=== PATIENT | male | born 1975 | race Caucasian/White ===

== ENCOUNTER → 2018-02-02 | Outpatient (CLI) | payer OTHER ==
[~2018-02-02] MED LIST: OMEP10CA4 PO
== END | disposition home or self-care (01) ==
LOC: RAD 14:50
PROVIDERS: ATTEND Family Medicine
DX: R10.11 Right upper quadrant pain (principal); R11.2 Nausea with vomiting, unspecified; R19.7 Diarrhea, unspecified
CPT/HCPCS: 76700

== ENCOUNTER 2018-02-22 23:52 | Emergency (ER) | payer OTHER ==
[~2018-02-22] VITALS: Ht 177.8 cm; Wt 111.0 kg
[2018-02-23] MEDS ORDERED: RANI-276 PO (00:24)
[2018-02-23 00:54] LABS: BASOPHILS # (AUTO) 0.04 x10^3/uL (0-0.1); BASOPHILS % (AUTO) 1 % (0-1); EOSINOPHILS # (AUTO) 0.12 x10^3/uL (0-0.4); EOSINOPHILS % (AUTO) 2 % (1-7); LYMPHOCYTES # (AUTO) 1.98 x10^3/uL (1-3.4); LYMPHOCYTES % (AUTO) 35 % (22-44); MD NO; MEAN CORPUSCULAR HEMOGLOBIN 33.2 pg (27.5-34.5); MEAN CORPUSCULAR HGB CONC 34.9 g/dL (33.2-36.2); MEAN CORPUSCULAR VOLUME 95.1 fL (81-97); MEAN PLATELET VOLUME 8.7 fL (7.4-10.4); MONOCYTES # (AUTO) 0.52 x10^3/uL (0.2-0.8); MONOCYTES % (AUTO) 9 % (2-9); NEUTROPHILS # (AUTO) 3.08 x10^3/uL (1.8-6.8); NEUTROPHILS % (AUTO) 54 % (42-75); PLATELET COUNT 279 x10^3/uL (130-400); RED BLOOD COUNT 4.94 x10^6/uL (4.38-5.82); RED CELL DISTRIBUTION WIDTH 12.9 % (9.4-14.8)
[2018-02-23 01:03] LABS: ALANINE AMINOTRANSFERASE 29 U/L (12-78); ALBUMIN 3.6 g/dL (3.4-5.0); ANION GAP 7 mmol/L (5-15); CALCIUM 8.4 mg/dL (8.5-10.1); CHLORIDE 107 mmol/L (98-107); CREATININE 1.13 mg/dL (0.7-1.3)
[2018-02-23 01:05] LABS: ALKALINE PHOSPHATASE 96 U/L (45-117); BILIRUBIN,TOTAL 0.5 mg/dL (0.2-1.0); TOTAL PROTEIN 6.8 g/dL (6.4-8.2)
[2018-02-23] MEDS ORDERED: OMNIPAQUE 350 MG/ML, 100ML BOTTLE ONE (01:14)
[2018-02-23 02:14] LABS: MICROSCOPIC NOT IND
[2018-02-23 02:16] LABS: CULTURE INDICATED? NO
[2018-02-23 03:02] VITALS: BP 46/78
== END 2018-02-23 03:04 | disposition home or self-care (01) ==
LOC: ED 23:59
DX: K52.9 Noninfective gastroenteritis and colitis, unspecified (principal)
CPT/HCPCS: 36415; 74177; 80053; 81003; 83690; 85025; 99285; Q9967

== ENCOUNTER 2018-04-14 10:59 | Emergency (ER) | payer OTHER ==
[~2018-04-14] VITALS: Ht 180.3 cm; Wt 107.0 kg
--- NOTE | 2018-04-14 11:15 | NUR ---
PT TO ROOM FROM LOBBY
--- NOTE | 2018-04-14 11:22 | NUR ---
42 Y/O MALE PRESENTS TO ED WITH C/O CP, BACK PAIN AND LEFT ARM DISCOMFORT. "I HAVE SOME CP, BACK PAIN AND LEFT ARM PAIN. I'VE HAD CP OVER THE YEARS THAT WAS ANXIETY. THIS TIME IT HAS BEEN GOING ON FOR 3 DAYS WITH MY ARM NOT FEELING RIGHT. SO I WANTED TO COME GET CHECKED" NO C/O N/V/D, TRAUMA, SYNCOPE, SOB. 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
--- NOTE | 2018-04-14 11:41 | NUR ---
ASSUMED CARE AT THIS TIME. VSS.
--- NOTE | 2018-04-14 11:46 | NUR ---
EKG BEING COMPLETED AT THIS TIME.
[2018-04-14] MEDS ORDERED: NITROGLYCERIN SINGLE TAB 0.4 MG SL PRN (12:00)
[2018-04-14] MEDS ORDERED: ASPIRIN 81 MG TABLET CHEW PO ONE (12:00)
[2018-04-14 12:09] LABS: BASOPHILS # (AUTO) 0.03 x10^3/uL (0-0.1); BASOPHILS % (AUTO) 1 % (0-1); EOSINOPHILS # (AUTO) 0.08 x10^3/uL (0-0.4); EOSINOPHILS % (AUTO) 2 % (1-7); LYMPHOCYTES # (AUTO) 1.13 x10^3/uL (1-3.4); LYMPHOCYTES % (AUTO) 24 % (22-44); MD NO; MEAN CORPUSCULAR HEMOGLOBIN 33.1 pg (27.5-34.5); MEAN CORPUSCULAR HGB CONC 34.5 g/dL (33.2-36.2); MEAN CORPUSCULAR VOLUME 95.9 fL (81-97); MEAN PLATELET VOLUME 8.4 fL (7.4-10.4); MONOCYTES # (AUTO) 0.42 x10^3/uL (0.2-0.8); MONOCYTES % (AUTO) 9 % (2-9); NEUTROPHILS # (AUTO) 3.09 x10^3/uL (1.8-6.8); NEUTROPHILS % (AUTO) 65 % (42-75); PLATELET COUNT 274 x10^3/uL (130-400); RED BLOOD COUNT 5.09 x10^6/uL (4.38-5.82); RED CELL DISTRIBUTION WIDTH 13.4 % (9.4-14.8)
[2018-04-14] MEDS ORDERED: ASPIRIN 81 MG TABLET CHEW ONE (12:38)
--- NOTE | 2018-04-14 12:45 | NUR ---
Pt taken to [facility]. Hossein.
[2018-04-14 13:03] LABS: ALBUMIN 3.9 g/dL (3.4-5.0); ANION GAP 4 mmol/L (5-15); CALCIUM 8.6 mg/dL (8.5-10.1); CHLORIDE 108 mmol/L (98-107); CREATININE 1.11 mg/dL (0.7-1.3)
[2018-04-14 13:07] LABS: TROPONIN I < 0.015 ng/mL (0.000-0.045)
--- NOTE | 2018-04-14 13:33 | NUR ---
All results back at this time.
[2018-04-14 13:34] VITALS: BP 135/102
--- NOTE | 2018-04-14 13:49 | NUR ---
Patient/Caregiver given discharge instructions and they have confirmed that they understand the instructions. Patient ambulatory with steady gait.
--- NOTE | 2018-04-14 14:10 | NUR ---
AWAITING MD SCANLON PAPERS
== END 2018-04-14 14:35 | disposition home or self-care (01) ==
LOC: ED 11:19
DX: R07.89 Other chest pain (principal); K21.9 Gastro-esophageal reflux disease without esophagitis
CPT/HCPCS: 36415; 71045; 80048; 82040; 84484; 85025; 85379; 93005; 99284

== ENCOUNTER → 2018-04-14 | Outpatient (CLI) | payer OTHER ==
[~2018-04-14] MED LIST changes: +RANI-448 PO
== END | disposition home or self-care (01) ==
LOC: RAD 09:58
PROVIDERS: ATTEND Orthopaedic Surgery
DX: Z02.9 Encounter for administrative examinations, unspecified (principal)

== ENCOUNTER 2019-07-01 17:34 | Emergency (ER) | payer OTHER ==
[~2019-07-01] VITALS: Ht 180.3 cm; Wt 99.2 kg
[~2019-07-01 17:34] MED LIST changes: -OMEP10CA4 PO; +OMEP10CA5 PO; -RANI-448 PO; +RANI-460 PO
[2019-07-01 20:28] LABS: MEAN CORPUSCULAR HEMOGLOBIN 33.8 pg (27.5-34.5); MEAN CORPUSCULAR VOLUME 99.3 fL (81-97); MEAN PLATELET VOLUME 7.8 fL (7.4-10.4); PLATELET COUNT 323 x10^3/uL (130-400); RED BLOOD COUNT 4.83 x10^6/uL (4.38-5.82); RED CELL DISTRIBUTION WIDTH 12.7 % (9.4-14.8)
[2019-07-01 20:32] LABS: ALANINE AMINOTRANSFERASE 26 U/L (12-78); ALBUMIN 3.8 g/dL (3.4-5.0); ANION GAP 7 mmol/L (5-15); CALCIUM 8.6 mg/dL (8.5-10.1); CHLORIDE 103 mmol/L (98-107); CREATININE 0.93 mg/dL (0.7-1.3)
[2019-07-01 20:35] LABS: ALKALINE PHOSPHATASE 69 U/L (45-117); BILIRUBIN,TOTAL 0.8 mg/dL (0.2-1.0); TOTAL PROTEIN 7.6 g/dL (6.4-8.2)
--- NOTE | 2019-07-01 20:52 | NUR ---
PT. TO ROOM FROM LOBBY.
[2019-07-01 20:55] LABS: BASOPHILS % (AUTO) 0 % (0-1); EOSINOPHILS # (AUTO) 0.01 x10^3/uL (0-0.4); EOSINOPHILS % (AUTO) 0 % (1-7); LYMPHOCYTES # (AUTO) 0.19 x10^3/uL (1-3.4); LYMPHOCYTES % (AUTO) 2 % (22-44); MD SCAN; MONOCYTES % (AUTO) 2 % (2-9); NEUTROPHILS # (AUTO) 10.14 x10^3/uL (1.8-6.8); NEUTROPHILS % (AUTO) 96 % (42-75)
--- NOTE | 2019-07-01 21:11 | NUR ---
PT. PROVIDING URINE SAMPLE AT THIS TIME. SEE TRIAGE NOTE.
--- NOTE | 2019-07-01 21:31 | NUR ---
URINE SAMPLE SENT TO LAB. VS UPDATED. PT. DENIES NEEDS. AWAITING PROVIDER EVAL.
--- NOTE | 2019-07-01 21:35 | NUR ---
DR. NI AT BS TO [facility] PT. AND DISCUSS POC AT THIS TIME.
[2019-07-01 21:39] LABS: MICROSCOPIC NOT IND
[2019-07-01 21:45] LABS: CULTURE INDICATED? NO
[2019-07-01] MEDS ORDERED: ONDANSETRON 2MG/ML, 2ML ONE (22:00)
[2019-07-01] MEDS ORDERED: ACETAMINOPHEN 500 MG TABLET PO ONE (22:00)
[2019-07-01] MEDS ORDERED: ONDANSETRON 2MG/ML, 2ML IVPush ONE (22:00)
[2019-07-01] MEDS ORDERED: SODIUM CHLORIDE 0.9% 1,000ML IVBOLUS ONE (22:00)
[2019-07-01] MEDS ORDERED: ACETAMINOPHEN 500 MG TABLET ONE (22:01)
[2019-07-01 22:09] LABS: RAPID INFLUENZA A Negative (Negative); RAPID INFLUENZA B Negative (Negative)
--- NOTE | 2019-07-01 23:33 | NUR ---
CHART UP FOR RECHECK BY [employer].
--- NOTE | 2019-07-02 00:01 | NUR ---
REPORT TO PURVI OAKLEY TO ASSUME CARE OF PT.
--- NOTE | 2019-07-02 01:02 | NUR ---
BREAK RN: STOOL SAMPLE WALKED TO LAB.
[2019-07-02 01:06] VITALS: BP 129/59
[2019-07-02] MEDS ORDERED: EMTR1TAB14 PO (01:06)
[2019-07-02] MEDS ORDERED: ASPI-496 PO (01:06)
[2019-07-02] MEDS ORDERED: OMEP-110 PO (01:06)
[2019-07-02] MEDS ORDERED: LOSA25TA25 PO (01:06)
[2019-07-02 01:43] LABS: CLOSTRIDIUM DIFFICILE ANTIGEN NEGATIVE; CLOSTRIDIUM DIFFICILE TOXIN NEGATIVE (Negative)
--- NOTE | 2019-07-02 01:56 | NUR ---
REPORT BACK TO PURVI OAKLEY TO REASSUME CARE OF PT.
== END 2019-07-02 02:51 ==
LOC: ED 07-02 02:45
DX: A09 Infectious gastroenteritis and colitis, unspecified (principal); K52.1 Toxic gastroenteritis and colitis; R11.2 Nausea with vomiting, unspecified; K21.9 Gastro-esophageal reflux disease without esophagitis; I10 Essential (primary) hypertension
CPT/HCPCS: 36415; 71045; 80053; 81003; 83605; 84145; 85025; 86592; 87040; 87324; 87400; 87491; 87591; 87806; 93005; 96361; 96374; 99285; J2405; J7030; G0475